=== PATIENT | female | born 2000 | race Two or more races ===

== ENCOUNTER 2024-09-23 14:58 | Emergency (ER) | payer OTHER ==
[~2024-09-23] VITALS: Ht 154.9 cm; Wt 114.8 kg
[~2024-09-23 14:58] MED LIST: ADVIL ALLERGY120 ML PO; ATARAX25 MG PO; MILLIPRED5 MG PO; ZANTAC15 MG/ML PO; ZYRTEC10 MG PO
[2024-09-23] MEDS ORDERED: BENZONATATE 100 MG CAPSULE PO STA (19:07)
[2024-09-23 20:14] LABS: BASO % 1.0 % (0.1-1.2); EOS # 0.31 (0.04-0.54); EOS % 5.1 % (0.7-7.0); LYMPH # 1.13 (1.18-3.74); LYMPH % 18.8 % (19.3-53.1); MEAN PLATELET VOLUME 11.20 fl (9.4-12.4); MONO # 0.91 (0.24-0.82); NEUT # 3.59 (1.56-6.13); NEUT % 59.7 % (34.0-71.1); RED CELL DISTRIBUTION WIDTH 15.6 % (11.6-14.4)
[2024-09-23 20:17] LABS: MONO % 15.1 % (4.7-12.5)
[2024-09-23 20:42] LABS: COVID-19 AG POSITIVE (NEGATIVE)
[2024-09-23 20:45] LABS: ALT/SGPT 21.0 U/L (12-78); AST/SGOT 13.0 U/L (15-37); BILIRUBIN TOTAL 0.28 mg/dL (0.3-1.2); BUN CREA RATIO 20.0 (7.0-25.0); CREATININE SERUM 0.7 mg/dL (0.55-1.02); GFR 105.63; GLOBULINA 3.8 G/DL (2.4-3.5); GLUCOSE FASTING 80.0 mg/dL (65-100); OSMOLALITY SERUM 284.0 MOSM/KG (275-295)
[2024-09-23] MEDS ORDERED: GILTUSS HONEY118 ML PO (21:03)
[2024-09-23] MEDS ORDERED: PAXLOVID 300/11 EACH PO (21:03)
== END 2024-09-23 21:27 | disposition home or self-care (01) ==
LOC: ER 14:58
PROVIDERS: General Practice
DX: U07.1 COVID-19 (principal); J00 Acute nasopharyngitis [common cold]